=== PATIENT | male | born 2000 | race Caucasian/White ===

== ENCOUNTER → 2024-08-31 06:44 | Outpatient (CLI) | payer OTHER, SELFPAY ==
--- NOTE | 2024-08-31 06:47 | DI.MRI.S_ITS ---
PROCEDURE: MR ANKLE RT WO CON INDICATIONS: spontaneous rupture of flexor tendons TECHNIQUE: Multiplanar, multisequence images of the right ankle were obtained without the use of intravenous contrast. Multiplanar, multisequence images of the right lower leg (tibia/fibula) were obtained without the use of intravenous contrast. COMPARISON: [facility], MR, MR LOWER LEG RT WO CON, 08/31/2024, 7:20. FINDINGS: Image quality: Excellent. ANKLE: Bones: The bone marrow signal is normal. The anterior process of the calcaneus and lateral process of the talus are intact. No talar dome osteochondral defect is seen. Joints: There is no significant tibiotalar joint effusion. There is a small subtalar joint effusion along the posterior facet. Sinus tarsi: The sinus tarsi signal is normal. Syndesmotic ligaments: The anterior and posterior inferior syndesmotic ligaments are normal. Lateral collateral ligament: There is low signal thickening of the anterior and posterior talofibular ligaments. The calcaneofibular ligament is intact. Deltoid ligament: The visualized components of the deltoid ligament, that being the posterior tibiotalar and tibiospring ligaments, are normal. Calcaneonavicular spring ligament: The superomedial component of the calcaneonavicular spring ligament is grossly intact. Tendons: The extensor, flexor and peroneal tendons are normal. The peroneal tendons are appropriately situated within the retromalleolar groove, and the superficial peroneal retinaculum is intact. Plantar aponeurosis: There is no abnormal thickening of, abnormal intrasubstance signal involving, or perifascial edema about the plantar aponeurosis. Plantar musculature: There are no findings of denervation involving the plantar muscles of the foot. Nerves: The visualized nerves are unremarkable. Other: Edema is present in Kager's fat pad. LOWER LEG: Bones: The marrow signal is within normal limits. There is no acute fracture or dislocation. Tendons: Superimposed on severe tendinosis, there is a full-thickness tear of the Achilles tendon centered at the critical zone (approximately 7.6 cm from the Achilles calcaneal insertion; 6/13) with approximately 9.8 cm of proximal tendon retraction; hemorrhagic debris is present in the tendon gap (6/13; 5/19). The tear propagates superiorly to involve the distal myotendinous junction of the soleus medial border (8/7-16). The plantaris tendon is intact. Perifascial fluid is present along the posterior calf. Other: Diffuse subcutaneous edema is present along the calf and hindfoot. IMPRESSION: 1. Full-thickness tear of the Achilles tendon at the critical zone, with 9.8 cm of proximal tendon retraction and hemorrhagic debris in the tendon gap. 2. Likely perifascial hemorrhage in the posterior calf with tear propagation to the level of the distal myotendinous junction of the soleus medial border. 3. 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 4. No other acute MR abnormality of the ankle or lower leg. Dictated by: Maurilio Mayer M.D. on 08/31/2024 at 19:04 Approved by: Maurilio Mayer M.D. on 08/31/2024 at 19:18
--- NOTE | 2024-08-31 06:48 | DI.MRI.S_ITS ---
PROCEDURE: MR LOWER LEG RT WO CON INDICATIONS: spontaneous rupture of flexor tendons TECHNIQUE: Noncontrast coronal and sagittal T1 spin echo and STIR; axial T1 spin echo and T2 fast spin echo with fat saturation through the right lower leg. COMPARISON: FINDINGS: Image quality: Excellent. Please see the same-day MRI right ankle without contrast report for further details. IMPRESSION: Please see the same-day MRI right ankle without contrast report for further details. Dictated by: Maurilio Mayer M.D. on 08/31/2024 at 20:29 Approved by: Maurilio Mayer M.D. on 08/31/2024 at 20:30
== END ==
PROVIDERS: PCP Student in an Organized Health Care Education/Training Program; Referring Provider Student in an Organized Health Care Education/Training Program; Visit Provider Student in an Organized Health Care Education/Training Program
DX: S86.011A Strain of right Achilles tendon, initial encounter (principal); S93.491A Sprain of other ligament of right ankle, initial encounter; M66.361 Spontaneous rupture of flexor tendons, right lower leg; X58.XXXA Exposure to other specified factors, initial encounter
CPT/HCPCS: 73718; 73721